=== PATIENT | female | born 2000 | race African-American/Black ===

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

== ENCOUNTER 2023-09-27 09:35 | Emergency (ER) | payer MEDICAID ==
[~2023-09-27] VITALS: Ht 170.2 cm; Wt 100.0 kg
[2023-09-27 09:46] VITALS: O2SAT 100
[2023-09-27] MEDS ORDERED: ACETAMINOPHEN 325MG TABLET PO ONE (10:15)
[2023-09-27] MEDS ORDERED: ACET-2708 MT (10:34)
[2023-09-27 11:14] VITALS: BP 139/87; PULSE 97; RESP 18; TEMP 98.5
== END 2023-09-27 11:16 | disposition home or self-care (01) ==
LOC: ER 09:35
DX: M25.561 Pain in right knee (principal)
CPT/HCPCS: 99283; L1830; 99282

== ENCOUNTER 2024-05-17 00:56 | Emergency (ER) | payer MEDICAID ==
[~2024-05-17 00:56] MED LIST changes: +ACET-2708 MT
== END 2024-05-17 02:40 | disposition left against medical advice (07) ==
LOC: ER 00:56
DX: Z53.21 Procedure and treatment not carried out due to patient leaving prior to being seen by health care provider (principal)